=== PATIENT | male | born 1955 | race Caucasian/White ===

== ENCOUNTER 2018-08-24 10:10 | Observation (INO) | payer OTHER ==
[~2018-08-24] VITALS: Ht 177.8 cm; Wt 90.7 kg
[~2018-08-24 10:10] MED LIST: ASPI81CH PO; HYDR1TAB94 PO; LISI20 PO; MELO7.5 PO; NITR.4SL SL; SOTO80 PO; TRAZ150T57 PO; ZESTORETIC 20-121 EA PO
--- NOTE | 2018-08-25 07:15 | NUR ---
Ambulatory in Day Surgery History, Chart, Medications and Allergies reviewed before start of procedure.Patient confirms NPO status and agrees with scheduled surgery. Lungs clear T/O to Auscultation. Patient reports completing Chlorhexadine shower X2 prior to admission to hospital.Surgical site prepped with 2% Chlorhexidine cloth wipe.
--- NOTE | 2018-08-25 11:23 | NUR ---
PT HERE FROM PACU. PT RLE WITH BRISK CAP REFILL. SPLINT IN PLACE TO RLE/ANKLE, ELEVATED ON MULT PILLOWS. PT A/O. REPORTS SLIGHT NAUSEA BUT DENIES WANTING MEDICATION FOR IT. PT WIGGLES TOES. PT DENIES ANY SUICIADAL IDEATION. DENIES HX OF MRSA.
[2018-08-26 06:04] LABS: BASOPHILS ABSOLUTE AUTO 0.03 K/mm3 (0.00-0.23); BASOPHILS PERCENT AUTO 0 % (0-2); EOSINOPHILS ABSOLUTE AUTO 0.05 K/mm3 (0.00-0.68); EOSINOPHILS PERCENT AUTO 1 % (0-6); Hematocrit 34.3 % (37.0-53.0); Hemoglobin 11.3 g/dL (13.5-17.5); IMMATURE GRAN ABSOLUTE AUTO 0.04 K/mm3 (0.00-0.10); IMMATURE GRAN PERCENT AUTO 0 % (0-1); LYMPHOCYTES ABSOLUTE AUTO 1.69 K/mm3 (0.84-5.20); LYMPHOCYTES PERCENT AUTO 17 % (21-46); MONOCYTES ABSOLUTE AUTO 0.74 K/mm3 (0.16-1.47); MONOCYTES PERCENT AUTO 8 % (4-13); Mean Corpuscular HGB 33.1 pg (26.0-34.0); Mean Corpuscular HGB Conc 32.9 g/dL (31.5-36.5); Mean Platelet Volume 9.1 fL (9.1-12.4); NEUTROPHILS ABSOLUTE AUTO 7.29 K/mm3 (1.96-9.15); NEUTROPHILS PERCENT AUTO 74 % (41-73); Platelet Count 177 K/mm3 (150-400); RDW Coefficient Variation 13.9 % (11.7-14.2); RDW Standard Deviation 51.5 fL (35.1-46.3); Red Blood Cell Count 3.41 M/mm3 (4.30-5.90); White Blood Cell Count 9.84 K/mm3 (4.00-11.30)
[2018-08-26 06:12] LABS: Mean Corpuscular Volume 101 fL (80-100)
[2018-08-26 06:29] LABS: Alanine Aminotransfer (ALT/SGP 22 U/L (12-78); Albumin, Blood 3.1 g/dL (3.4-5.0); Alk Phos 69 U/L (50-136); Anion Gap 6 mmol/L (6-16); Aspartate Aminotrans (AST/SGOT 12 U/L (12-37); Bilirubin, Total 0.8 mg/dL (0.1-1.0); Blood Urea Nitrogen 19 mg/dL (8-24); Bun/Creatinine Ratio 21.5 (12.0-20.0); CO2, Blood 25 mmol/L (21-32); Chloride, Blood 109 mmol/L (98-108); Creatinine, Blood 0.88 mg/dL (0.60-1.20); Globulin, Blood 3.1 g/dL (2.2-4.0); Glomerular Filtration Rate >60 (60-); Glucose, Blood 95 mg/dL (70-99); Potassium, Blood 4.1 mmol/L (3.5-5.5); Sodium, Blood 140 mmol/L (136-145); Total Protein, Blood 6.2 g/dL (6.4-8.2)
--- NOTE | 2018-08-26 08:07 | NUR ---
SHIFT SUMMARY PT A&O X4 T/O SHIFT. POD#1 R TOTAL ANKLE REPLACEMENT. DRESSING/SPLINT CDI. PT DENIES N/T, REPORTS SENSATION, MOVES TOES, EXT PWD. PAIN MANGED PER EMAR. NWB RLE, PT UP WITH GAITBELT, FWW AND SBA. SCD AND DERIC TO LLE. ICE TO RLE AND RLE ELEVATED PT TOLERATED. TELEMETRY IN PLACE, SR WITH PVC'S PER QUARRY BOSS. PT DENIES CP, NAUSEA AND SOB; ON RA. CIWA 0 T/O SHIFT. CALL LIGHT IN REACH; PT DEMONSTRATES USE. REPORT GIVEN TO DAY SHIFT RN.
[2018-08-26] MEDS ORDERED: ACET325 PO (12:25)
[2018-08-26] MEDS ORDERED: Percocet 5-3251 EACH PO (12:26)
[2018-08-26] MEDS ORDERED: SENN187 PO (12:27)
[2018-08-26] MEDS ORDERED: GAVILAX17 GM PO (12:27)
--- NOTE | 2018-08-26 14:21 | NUR ---
DISCHARGESUMMARY PT A&OX4, VSS, LEFT FLOOR VIA WC WITH RN TO GO HOME WITH FAMILY, WITH ALL PERSONAL POSSESSIONS INCLUDING DISCHARGE PACKET AND 1 PERC SCRIPT. DISCHARGE INSTRUCTIONS PROVIDED. PT REP UNDERSTANDING THOSE INSTRUCTIONS INCLUDING SHIVA, JALEESA IN 2 WKS WITH SURGEON. IV DC'D.
--- NOTE | 2018-08-26 15:31 | NUR ---
08/26/18 1531 Samanta Avery VERIFICATIONS: EDIT CHART.
== END 2018-08-26 12:53 | disposition home or self-care (01) ==
LOC: SURS 08-25 05:39 → PRE IP 08-25 05:39 → SURS 08-25 05:39 → PRE IP 08-25 07:30 → SURS 08-25 11:15
PROVIDERS: ADMIT Podiatrist Foot & Ankle Surgery
PROC: 0SRF0JZ Replacement of Right Ankle Joint with Synthetic Substitute, Open Approach (ICD-10-PCS; principal; 2018-08-25 07:30)
DX: M19.071 Primary osteoarthritis, right ankle and foot (principal); M21.961 Unspecified acquired deformity of right lower leg; I10 Essential (primary) hypertension; Z87.891 Personal history of nicotine dependence; Z79.899 Other long term (current) drug therapy; Z79.82 Long term (current) use of aspirin
CPT/HCPCS: 36415; 73610; 80053; 85025; 85027; 86850; 86900; 86901; 97116; 97162; 97165; 97530; 97535; C1776; G0378; J0171; J0690; J0735; J1100; J1650; J1885; J2250; J2405; J2795; J3010; J7030; J7120

== ENCOUNTER 2019-07-07 19:03 | Inpatient (IN) | payer OTHER ==
[~2019-07-07] VITALS: Ht 182.9 cm; Wt 96.8 kg
[~2019-07-07 19:03] MED LIST changes: +ACET325 PO; -ASPI81CH PO; +GAVILAX17 GM PO; -LISI20 PO; -MELO7.5 PO; +Percocet 5-3251 EACH PO; +SENN187 PO; -SOTO80 PO
[2019-07-07 19:20] LABS: Chloride (POC) 105 mmol/L (98-108); Creatinine (POC) 1.1 mg/dL (0.8-1.3); Glucose (ISTAT POC) 132 mg/dL (70-99); Hemoglobin (POC) 14.3 g/dL (13.5-17.5); Potassium (POC) 4.3 mmol/L (3.5-5.5); Sodium (POC) 138 mmol/L (135-148); Total CO2 (POC) 24 mmol/L (21-32)
[2019-07-07 19:39] LABS: BASOPHILS ABSOLUTE AUTO 0.06 K/mm3 (0.00-0.23); BASOPHILS PERCENT AUTO 1 % (0-2); EOSINOPHILS ABSOLUTE AUTO 0.24 K/mm3 (0.00-0.68); EOSINOPHILS PERCENT AUTO 3 % (0-6); Hematocrit 42.7 % (37.0-53.0); Hemoglobin 13.9 g/dL (13.5-17.5); IMMATURE GRAN ABSOLUTE AUTO 0.03 K/mm3 (0.00-0.10); IMMATURE GRAN PERCENT AUTO 0 % (0-1); LYMPHOCYTES ABSOLUTE AUTO 1.75 K/mm3 (0.84-5.20); LYMPHOCYTES PERCENT AUTO 22 % (21-46); MONOCYTES ABSOLUTE AUTO 0.76 K/mm3 (0.16-1.47); MONOCYTES PERCENT AUTO 9 % (4-13); Mean Corpuscular HGB 32.5 pg (26.0-34.0); Mean Corpuscular HGB Conc 32.6 g/dL (31.5-36.5); Mean Corpuscular Volume 100 fL (80-100); Mean Platelet Volume 9.2 fL (9.1-12.4); NEUTROPHILS ABSOLUTE AUTO 5.22 K/mm3 (1.96-9.15); NEUTROPHILS PERCENT AUTO 65 % (41-73); Platelet Count 235 K/mm3 (150-400); RDW Coefficient Variation 13.2 % (11.7-14.2); RDW Standard Deviation 47.9 fL (35.1-46.3); Red Blood Cell Count 4.28 M/mm3 (4.30-5.90); White Blood Cell Count 8.06 K/mm3 (4.00-11.30)
[2019-07-07] MEDS ORDERED: ELIQUIS5 M2 PO (20:09)
[2019-07-07] MEDS ORDERED: Aspir 8181 MG PO (20:10)
[2019-07-07 20:19] LABS: Alanine Aminotransfer (ALT/SGP 36 U/L (12-78); Albumin, Blood 3.4 g/dL (3.4-5.0); Alk Phos 96 U/L (50-136); Anion Gap 5 mmol/L (6-16); Aspartate Aminotrans (AST/SGOT 31 U/L (12-37); Bilirubin, Total 0.3 mg/dL (0.1-1.0); Blood Urea Nitrogen 20 mg/dL (8-24); Bun/Creatinine Ratio 20.5 (12.0-20.0); CO2, Blood 25 mmol/L (21-32); Calcium, Blood 7.9 mg/dL (8.5-10.1); Chloride, Blood 110 mmol/L (98-108); Creatinine, Blood 0.98 mg/dL (0.60-1.20); Globulin, Blood 3.5 g/dL (2.2-4.0); Glomerular Filtration Rate >60 (60-); Glucose, Blood 131 mg/dL (70-99); Magnesium, Blood 1.9 mg/dL (1.6-2.4); Potassium, Blood 4.4 mmol/L (3.5-5.5); Sodium, Blood 140 mmol/L (136-145); Total Protein, Blood 6.9 g/dL (6.4-8.2)
[2019-07-07] MEDS ORDERED: Mobic15 MG PO (20:31)
[2019-07-07] MEDS ORDERED: LISI20 PO (20:31)
[2019-07-07] MEDS ORDERED: SOTO80 PO (20:31)
[2019-07-07] MEDS ORDERED: HYDR1TAB94 PO (20:32)
--- NOTE | 2019-07-08 06:42 | NUR ---
ADMIT NOTE/SHIFT SUMMARY PATIENT PLEASENT AND COOPERATIVE UPON ADMIT AND THROUGHOUT THE NIGHT. PATIENT ADMITTED FROM THE ER EARLIER THIS SHIFT. PATIENT ABLE TO INDEPENDENTLY TRANSFER SELF FROM THE GURNEY TO THE BED. PATIENT SELTTLED IN AND ORIENTED TO THE ROOM, UNIT, AND CAALL LIGHT. AMIODERONE GTT STARTED IN ER AT APROX 2030. GTT CONTINUES TO RUN PER ORDERS. PATIENT HAS DENIED ANY CHEST PAIN THROUGHOUT THE NIGHT. DIFIB PADS IN PLACE PER ORDERS. SIGNIFICANT OTHER STAYED THE NIGHT AT THE BEDSIDE. PATIENT CURRENTLY APPEARS TO BE ASLEEP. WILL CONTINUE TO MONITOR PATIENT AND REPORT TO ONCOMING RN.
--- NOTE | 2019-07-08 07:48 | NUR ---
PT LAYING IN BED AWAKE A/OX3, PLEASANT AND COOPERATIVE WITH CARE, FOLLOWS COMMANDS WELL, DENIES ANY COMPLAINTS OF C.P. SOB, OR DIZZINESS, REPORTS THAT IS ALL RESOLVED, LUNGS ARE CLEAR T/O, RESP EVEN AND UNLABORED, NO COUGH NOTED, HRR, TELE IN PLACE RUNNING SR WITH OCC PACED BEATS, NO EDEMA NOTED, PIV X2, SITES ARE CLEAR AND PATENT, AMIODORONE INFUSING, BTX4, ABD FLAT SOFT NONTENDER, VOIDS WITHOUT DIFF, SKIN C/W/D, MAEW, MATTI, CALL LIGHT IN REACH.
--- NOTE | 2019-07-08 13:00 | NUR ---
PT DOING WELL, NO COMPLAINTS, STATES HE'S READY TO GO HOME. STARTED HIM ON ORAL AMIO. MAY DISCHARGE AROUND 1700. V.S. ARE STABLE, CALL LIGHT IN REACH.
[2019-07-08 17:02] LABS: Albumin, Blood 3.4 g/dL (3.4-5.0); Bilirubin, Direct 0.1 mg/dL (0.0-0.3); Bilirubin, Indirect 0.3 mg/dL (0.1-0.7); Bilirubin, Total 0.4 mg/dL (0.1-1.0); Globulin, Blood 3.5 g/dL (2.2-4.0); Total Protein, Blood 6.9 g/dL (6.4-8.2)
[2019-07-08 17:10] LABS: Thyroid Stimulating Hormone 1.25 uIU/mL (0.360-4.800)
--- NOTE | 2019-07-08 18:30 | NUR ---
pt up ad marsha in room, no complaints, was hoping to go home today, has felt good through out the day. call light in reach.
--- NOTE | 2019-07-08 22:38 | NUR ---
CARE ASSUMPTION PT A&O X4. VSS. MONITOR SHOWS NSR, HR 60's. AMIO GTT NO LONGER INFUSING. PT INDEPENDENT IN ROOM ASKING ABOUT DISCHARGE HOME. NO ORDERS FOR DISCHARGE AT THIS TIME. WILL CONTINUE TO MONITOR AND PROVIDE CARE.
--- NOTE | 2019-07-09 05:38 | NUR ---
SHIFT SUMMARY PT CONTINUES TO BE A&O X4. INDEPENDENT IN ROOM. VSS. MONITOR SHOWING NSR, HR 60's. NO EVENTS/CHANGES THIS SHIFT. PT REPORTS DEFIB PADS REMOVED DURING DAY THURSDAY. PT AWAITING WORD ON [employer] FINANCIAL ASSISTANCE & ANTICIPATING DISCHARGE HOME. WILL CONTINUE TO MONITOR AND PROVIDE CARE UNTIL REPORT OFF TO DAY SHIFT RN.
--- NOTE | 2019-07-09 12:30 | NUR ---
ASSUMED CARE OF PATIENT AT 1200. SITTING AT SIDE OF BED IN NAD. DENIES CHEST PAIN, SOB. LUNGS CTAB, HRR. IS ANXIOUS FOR CUSTOMER SUPPORT PROFESSIONAL TO SEE HIM HE WOULD LIKE TO BE DISCHARGED. AMBULATES INDEPENDENTLY.
--- NOTE | 2019-07-09 18:34 | NUR ---
SHIFT SUMMARY: NO EVENTS DURING THE DAY. NO C/O CHEST DISCOMFORT OR SOB. AMBULATING INDEPENDENTLY. GOOD APPETITE. IS AWAITING VISIT FROM PROGRAM DIR.
--- NOTE | 2019-07-09 19:21 | NUR ---
CARDIOLOGY: CALLED DR MIRANDA ON CELL PHONE AFTER BEING NOTIFIED PT WAS NOT SIGNED OUT TO DR CURTIS. DR MIRANDA STATES PT WAS TO BE DISCHARGED THIS MORNING AFTER RECIVING CARDIAC MEDICATIONS. TALKED WITH NURSING PERSONAL CARE ASSISTANT. REPORTED OF TO NOC DATA PROCESSING MECHANIC TO FOLLOW UP WITH HOSPITALIST TO GET DISCHARGE.
--- NOTE | 2019-07-09 20:30 | NUR ---
CARE ASSUMPTION NOC JD EDWARDS W/ CALL TO MD ESQUIVEL @ APPROX 1999 W/ REQUEST FOR PT DISCHARGE. NOC HOSPITALIST UNABLE TO DISCHARGE PT D/T NO DISCHARGE CRITERIA OR INSTRUCTIONS. PT CALM AND COOPERATIVE, WAITING PATIENTLY IN ROOM ANTICIPATING DISCHARGE HOME HE WAS INFORMED HE WOULD BE DISCHARGING HOME TODAY. PT A&O X4. VSS. ASSESSMENT BENIGN. MONITOR SHOWS SR, HR 60's. PT AGREEABLE TO WAIT FOR DISCHARGE HOME BY DOCTOR IN AM. WILL CONTINUE TO MONITOR AND PROVIDE CARE.
--- NOTE | 2019-07-10 06:06 | NUR ---
SHIFT SUMMARY PT A&O X4. VSS. MONITOR SHOWS NSR, HR 60's. NO EVENTS/CHANGES OVERNIGHT. PT AWAITING DISCHARGE. WILL CONTINUE TO MONITOR AND PROVIDE CARE UNTIL REPORT OFF TO DAY SHIFT RN.
--- NOTE | 2019-07-10 10:00 | NUR ---
CARE ASSUMED/PROVIDER VISIT/DISCHARGE REPORT RECEIVED, CARE ASSUMED AT 0700 FROM GRETCHEN ARTIS. ON ROUNDING, PT DRESSED, REPORTS BEING READY TO GO HOME. INFORMED PATIENT ON PLAN OF CARE AND PT AGREEABLE. VITALS STABLE. PT DENIES CHEST PAIN OR DIZZINESS. PT OFF ON WALK INDEPENDENTLY IN HOSPITAL. DR. BAJWA BY FOR ASSESSMENT. PLAN MADE FOR DISCHARGE. DISCHARGE PAPERWORK UPDATED. ARAMIS HUSAIN RN UPDATED AND AGREEABLE TO REVIEW PAPERWORK AND PROVIDER PAPERWORK AND EDUCATION TO PATIENT.
[2019-07-10] MEDS ORDERED: Pacerone400 MG PO (10:25)
--- NOTE | 2019-07-10 11:02 | NUR ---
discharge home PT discharged home. he refused a w/c out. medication orders faxed to mayda smith at [facility]. Talked with pt about going on line and requesting medications through the operations clerk for eliqu[employer]. We did not have a coupon for Eliquis. iv removed with cannula intact. Continue pot.
== END 2019-07-10 10:59 | disposition home or self-care (01) | DRG 309 ==
LOC: ER 19:03 → PCU 19:04
PROVIDERS: Emergency Medicine; Internal Medicine Cardiovascular Disease; ADMIT Internal Medicine
PROC: 5A2204Z Restoration of Cardiac Rhythm, Single (ICD-10-PCS; principal; 2019-07-07)
DX: I48.92 Unspecified atrial flutter (principal); T82.118A Breakdown (mechanical) of other cardiac electronic device, initial encounter; I47.2 Ventricular tachycardia; I25.10 Atherosclerotic heart disease of native coronary artery without angina pectoris; Z95.0 Presence of cardiac pacemaker; I25.2 Old myocardial infarction; I10 Essential (primary) hypertension; Z96.661 Presence of right artificial ankle joint; Z87.891 Personal history of nicotine dependence; Z79.82 Long term (current) use of aspirin; Z91.120 Patient's intentional underdosing of medication regimen due to financial hardship; F10.10 Alcohol abuse, uncomplicated; T45.516A Underdosing of anticoagulants, initial encounter; Y92.9 Unspecified place or not applicable
CPT/HCPCS: 36415; 80047; 80053; 80076; 83735; 84443; 84484; 85014; 85025; 92960; 93005; 93010; 96365-59; 96366-59; 96375-59; 96376; 99285-25; G0378; J0282; J2704; J3010; J7030; J7060

== ENCOUNTER → 2020-08-29 | Outpatient (CLI) | payer MEDICARE, OTHER ==
[~2020-08-29] MED LIST changes: +ATOR20 PO; +Aspir 8181 MG PO; +CLIN150 PO; +Cleocin HCl300 MG PO; +ELIQUIS5 M2 PO; +LISI20 PO; +Mobic15 MG PO; +Pacerone400 MG PO; +SOTO80 PO; +WARF3 PO
== END | disposition home or self-care (01) ==
LOC: LAB SHORT 13:06 → PLD 13:06
DX: L03.114 Cellulitis of left upper limb (principal); L03.115 Cellulitis of right lower limb
CPT/HCPCS: 87070; 87075; 87077; 87147; 87186; 87205

== ENCOUNTER 2020-09-24 10:49 | Emergency (ER) | payer MEDICARE, OTHER ==
[~2020-09-24] VITALS: Ht 180.3 cm; Wt 97.1 kg
[~2020-09-24 10:49] MED LIST changes: -ATOR20 PO; -CLIN150 PO; -Cleocin HCl300 MG PO; -WARF3 PO
[2020-09-24] MEDS ORDERED: WARF3 PO (11:09)
[2020-09-24 11:43] LABS: BASOPHILS ABSOLUTE AUTO 0.05 K/mm3 (0.00-0.23); BASOPHILS PERCENT AUTO 1 % (0-2); EOSINOPHILS ABSOLUTE AUTO 0.12 K/mm3 (0.00-0.68); EOSINOPHILS PERCENT AUTO 2 % (0-6); Hematocrit 33.6 % (37.0-53.0); Hemoglobin 11.1 g/dL (13.5-17.5); IMMATURE GRAN ABSOLUTE AUTO 0.05 K/mm3 (0.00-0.10); IMMATURE GRAN PERCENT AUTO 1 % (0-1); LYMPHOCYTES ABSOLUTE AUTO 0.77 K/mm3 (0.84-5.20); LYMPHOCYTES PERCENT AUTO 13 % (21-46); MONOCYTES PERCENT AUTO 10 % (4-13); Mean Corpuscular HGB 31.2 pg (26.0-34.0); Mean Corpuscular Volume 94 fL (80-100); Mean Platelet Volume 8.6 fL (9.1-12.4); NEUTROPHILS ABSOLUTE AUTO 4.55 K/mm3 (1.96-9.15); NEUTROPHILS PERCENT AUTO 74 % (41-73); Platelet Count 242 K/mm3 (150-400); RDW Coefficient Variation 13.5 % (11.7-14.2); RDW Standard Deviation 46.9 fL (35.1-46.3); Red Blood Cell Count 3.56 M/mm3 (4.30-5.90); White Blood Cell Count 6.14 K/mm3 (4.00-11.30)
[2020-09-24 11:57] LABS: Alanine Aminotransfer (ALT/SGP 26 U/L (12-78); Albumin, Blood 2.9 g/dL (3.4-5.0); Albumin/Globulin Ratio 0.6 (0.8-1.8); Alk Phos 89 U/L (50-136); Anion Gap 8 mmol/L (6-16); Aspartate Aminotrans (AST/SGOT 19 U/L (12-37); Bilirubin, Total 0.5 mg/dL (0.1-1.0); Blood Urea Nitrogen 21 mg/dL (8-24); Bun/Creatinine Ratio 17.8 (12.0-20.0); CO2, Blood 24 mmol/L (21-32); Calcium, Blood 8.3 mg/dL (8.5-10.1); Chloride, Blood 101 mmol/L (98-108); Creatinine, Blood 1.18 mg/dL (0.60-1.20); Globulin, Blood 4.8 g/dL (2.2-4.0); Glomerular Filtration Rate >60 (60-); Glucose, Blood 93 mg/dL (70-99); Potassium, Blood 4.6 mmol/L (3.5-5.5); Sodium, Blood 133 mmol/L (136-145); Total Protein, Blood 7.7 g/dL (6.4-8.2)
[2020-09-24] MEDS ORDERED: CLIN150 PO (12:34)
== END 2020-09-24 15:10 | disposition home or self-care (01) ==
LOC: ER 10:49
PROVIDERS: Physician Assistant
DX: S71.111A Laceration without foreign body, right thigh, initial encounter (principal); L08.9 Local infection of the skin and subcutaneous tissue, unspecified; I10 Essential (primary) hypertension; M79.604 Pain in right leg; Z79.01 Long term (current) use of anticoagulants; Z79.899 Other long term (current) drug therapy
CPT/HCPCS: 36415; 76882; 80053; 85025; 87070; 87147; 87205; 96365; 96366; 99284-25; J3370; J7050

== ENCOUNTER → 2020-09-24 | Outpatient (CLI) | payer MEDICARE, OTHER | END | disposition home or self-care (01) | LOC: LAB SHORT 18:25 → PLD 18:25 | DX: L03.116 Cellulitis of left lower limb (principal) | CPT/HCPCS: 87070; 87147; 87205 ==

== ENCOUNTER 2020-10-05 12:03 | Emergency (ER) | payer MEDICARE, OTHER ==
[~2020-10-05] VITALS: Ht 180.3 cm; Wt 93.9 kg
[~2020-10-05 12:03] MED LIST changes: +CLIN150 PO; +WARF3 PO
[2020-10-05] MEDS ORDERED: ATOR20 PO (12:27)
[2020-10-05 12:56] LABS: BASOPHILS ABSOLUTE AUTO 0.05 K/mm3 (0.00-0.23); BASOPHILS PERCENT AUTO 1 % (0-2); EOSINOPHILS ABSOLUTE AUTO 0.08 K/mm3 (0.00-0.68); EOSINOPHILS PERCENT AUTO 1 % (0-6); Hematocrit 35.5 % (37.0-53.0); Hemoglobin 11.7 g/dL (13.5-17.5); IMMATURE GRAN ABSOLUTE AUTO 0.03 K/mm3 (0.00-0.10); IMMATURE GRAN PERCENT AUTO 0 % (0-1); LYMPHOCYTES PERCENT AUTO 16 % (21-46); MONOCYTES ABSOLUTE AUTO 0.74 K/mm3 (0.16-1.47); MONOCYTES PERCENT AUTO 11 % (4-13); Mean Corpuscular HGB 30.9 pg (26.0-34.0); Mean Corpuscular Volume 94 fL (80-100); Mean Platelet Volume 8.1 fL (9.1-12.4); NEUTROPHILS ABSOLUTE AUTO 4.89 K/mm3 (1.96-9.15); NEUTROPHILS PERCENT AUTO 71 % (41-73); Platelet Count 321 K/mm3 (150-400); RDW Coefficient Variation 14.2 % (11.7-14.2); RDW Standard Deviation 49.1 fL (35.1-46.3); Red Blood Cell Count 3.79 M/mm3 (4.30-5.90); White Blood Cell Count 6.89 K/mm3 (4.00-11.30)
[2020-10-05 13:11] LABS: Anion Gap 8 mmol/L (6-16); Blood Urea Nitrogen 18 mg/dL (8-24); Bun/Creatinine Ratio 17.1 (12.0-20.0); CO2, Blood 23 mmol/L (21-32); Calcium, Blood 8.7 mg/dL (8.5-10.1); Chloride, Blood 104 mmol/L (98-108); Creatinine, Blood 1.05 mg/dL (0.60-1.20); Glomerular Filtration Rate >60 (60-); Glucose, Blood 88 mg/dL (70-99); Potassium, Blood 4.1 mmol/L (3.5-5.5); Sodium, Blood 135 mmol/L (136-145)
[2020-10-05] MEDS ORDERED: Cleocin HCl300 MG PO (14:33)
== END 2020-10-05 14:55 | disposition home or self-care (01) ==
LOC: ER 12:03
PROVIDERS: Emergency Medicine
DX: L03.115 Cellulitis of right lower limb (principal); Z79.01 Long term (current) use of anticoagulants; Z79.82 Long term (current) use of aspirin
CPT/HCPCS: 36415; 73701; 80048; 85025; 86140; 99284-25; A9270; Q9967

== ENCOUNTER 2020-10-30 01:06 | Day surgery (SDC) | payer MEDICARE, OTHER ==
[~2020-10-30 01:06] MED LIST changes: +ATOR20 PO; +Cleocin HCl300 MG PO
== END 2020-10-30 23:16 | disposition home or self-care (01) ==
LOC: WOUND 01:06
DX: L03.115 Cellulitis of right lower limb (principal); S71.011A Laceration without foreign body, right hip, initial encounter; S81.001A Unspecified open wound, right knee, initial encounter; Z87.891 Personal history of nicotine dependence
CPT/HCPCS: G0463

== ENCOUNTER 2020-11-08 00:25 | Day surgery (SDC) | payer MEDICARE, OTHER | END 2020-11-08 23:22 | disposition home or self-care (01) | LOC: WOUND 00:25 | DX: S81.001D Unspecified open wound, right knee, subsequent encounter (principal); X58.XXXD Exposure to other specified factors, subsequent encounter | CPT/HCPCS: A9270; G0463 ==

== ENCOUNTER → 2021-05-23 | Outpatient (CLI) | payer OTHER ==
[2021-05-23 15:41] LABS: BASOPHILS ABSOLUTE AUTO 0.05 K/mm3 (0.00-0.23); BASOPHILS PERCENT AUTO 1 % (0-2); EOSINOPHILS PERCENT AUTO 2 % (0-6); Hematocrit 39.3 % (37.0-53.0); Hemoglobin 13.2 g/dL (13.5-17.5); IMMATURE GRAN ABSOLUTE AUTO 0.03 K/mm3 (0.00-0.10); IMMATURE GRAN PERCENT AUTO 1 % (0-1); LYMPHOCYTES ABSOLUTE AUTO 0.78 K/mm3 (0.84-5.20); LYMPHOCYTES PERCENT AUTO 13 % (21-46); MONOCYTES PERCENT AUTO 13 % (4-13); Mean Corpuscular HGB Conc 33.6 g/dL (31.5-36.5); Mean Corpuscular Volume 95 fL (80-100); NEUTROPHILS ABSOLUTE AUTO 4.29 K/mm3 (1.96-9.15); NEUTROPHILS PERCENT AUTO 71 % (41-73); Platelet Count 227 K/mm3 (150-400); RDW Coefficient Variation 14.3 % (11.7-14.2); RDW Standard Deviation 49.6 fL (35.1-46.3); Red Blood Cell Count 4.13 M/mm3 (4.30-5.90); White Blood Cell Count 6.05 K/mm3 (4.00-11.30)
[2021-05-23 15:58] LABS: Cholesterol 134 mg/dL (50-200); HDL Cholesterol 68 mg/dL (>39); LDL/HDL RATIO 0.8; Low Density Lipoprotein Chol 56 mg/dL (0-110); Triglycerides 48 mg/dL (30-160); Very Low Density Lipoprot Chol 9 mg/dL (6-32)
[2021-05-23 16:55] LABS: Alanine Aminotransfer (ALT/SGP 46 U/L (12-78); Albumin, Blood 3.6 g/dL (3.4-5.0); Albumin/Globulin Ratio 0.8 (0.8-1.8); Alk Phos 128 U/L (50-136); Anion Gap 7 mmol/L (6-16); Aspartate Aminotrans (AST/SGOT 41 U/L (12-37); Bilirubin, Total 0.6 mg/dL (0.1-1.0); Blood Urea Nitrogen 19 mg/dL (8-24); Bun/Creatinine Ratio 16.7 (12.0-20.0); CO2, Blood 25 mmol/L (21-32); Chloride, Blood 99 mmol/L (98-108); Creatinine, Blood 1.14 mg/dL (0.60-1.20); Globulin, Blood 4.4 g/dL (2.2-4.0); Glomerular Filtration Rate >60 (60-); Glucose, Blood 78 mg/dL (70-99); Potassium, Blood 4.7 mmol/L (3.5-5.5); Sodium, Blood 131 mmol/L (136-145)
== END | disposition home or self-care (01) ==
LOC: LAB SHORT 13:08 → LAB 13:08
PROVIDERS: Nurse Practitioner
DX: Z12.5 Encounter for screening for malignant neoplasm of prostate (principal); E78.5 Hyperlipidemia, unspecified; R53.83 Other fatigue
CPT/HCPCS: 80053; 80061; 84443; 85025; G0103

== ENCOUNTER → 2022-03-25 | Outpatient (CLI) | payer OTHER ==
[2022-03-25 16:18] LABS: BASOPHILS ABSOLUTE AUTO 0.05 K/mm3 (0.00-0.23); BASOPHILS PERCENT AUTO 1 % (0-2); EOSINOPHILS PERCENT AUTO 2 % (0-6); Hematocrit 41.2 % (37.0-53.0); Hemoglobin 13.9 g/dL (13.5-17.5); IMMATURE GRAN ABSOLUTE AUTO 0.02 K/mm3 (0.00-0.10); IMMATURE GRAN PERCENT AUTO 0 % (0-1); LYMPHOCYTES ABSOLUTE AUTO 0.82 K/mm3 (0.84-5.20); LYMPHOCYTES PERCENT AUTO 14 % (21-46); MONOCYTES ABSOLUTE AUTO 0.92 K/mm3 (0.16-1.47); MONOCYTES PERCENT AUTO 16 % (4-13); Mean Corpuscular HGB 31.7 pg (26.0-34.0); Mean Corpuscular HGB Conc 33.7 g/dL (31.5-36.5); Mean Corpuscular Volume 94 fL (80-100); Mean Platelet Volume 8.6 fL (9.1-12.4); NEUTROPHILS ABSOLUTE AUTO 3.91 K/mm3 (1.96-9.15); NEUTROPHILS PERCENT AUTO 67 % (41-73); Platelet Count 260 K/mm3 (150-400); RDW Coefficient Variation 14.1 % (11.7-14.2); RDW Standard Deviation 48.9 fL (35.1-46.3); Red Blood Cell Count 4.39 M/mm3 (4.30-5.90); White Blood Cell Count 5.82 K/mm3 (4.00-11.30)
[2022-03-25 16:34] LABS: Alanine Aminotransfer (ALT/SGP 39 U/L (12-78); Albumin, Blood 3.9 g/dL (3.4-5.0); Alk Phos 131 U/L (50-136); Anion Gap 7 mmol/L (6-16); Aspartate Aminotrans (AST/SGOT 27 U/L (12-37); Bilirubin, Total 0.7 mg/dL (0.1-1.0); Blood Urea Nitrogen 24 mg/dL (8-24); Bun/Creatinine Ratio 20.5 (12.0-20.0); CHOL/HDL RATIO 2.6; CO2, Blood 25 mmol/L (21-32); Calcium, Blood 9.3 mg/dL (8.5-10.1); Chloride, Blood 100 mmol/L (98-108); Cholesterol 147 mg/dL (50-200); Creatinine, Blood 1.17 mg/dL (0.60-1.20); Globulin, Blood 3.9 g/dL (2.2-4.0); Glomerular Filtration Rate 69 (60-); Glucose, Blood 90 mg/dL (70-99); HDL Cholesterol 56 mg/dL (>39); LDL/HDL RATIO 1.4; Low Density Lipoprotein Chol 78 mg/dL (0-110); Potassium, Blood 4.6 mmol/L (3.5-5.5); Sodium, Blood 132 mmol/L (136-145); Total Protein, Blood 7.8 g/dL (6.4-8.2); Triglycerides 66 mg/dL (30-160); Very Low Density Lipoprot Chol 13 mg/dL (6-32)
== END | disposition home or self-care (01) ==
LOC: LAB 16:03 → LAB SHORT 16:03
PROVIDERS: Nurse Practitioner
DX: E78.5 Hyperlipidemia, unspecified (principal); R06.09 Other forms of dyspnea
CPT/HCPCS: 80053; 80061; 83880; 85025

== ENCOUNTER 2022-08-22 06:07 | Day surgery (SDC) | payer OTHER ==
[~2022-08-22] VITALS: Ht 180.3 cm; Wt 94.3 kg
[2022-08-22] MEDS ORDERED: ELIQUIS5 M2 PO (06:59)
[2022-08-22] MEDS ORDERED: FURO20 PO (07:21)
--- NOTE | 2022-08-22 08:24 | NUR ---
08/22/22 0824 Deepali De Leon FIRST DOSE OF TXA STARTED BY DR SILVA AT 0805.
--- NOTE | 2022-08-22 10:37 | NUR ---
08/22/[address] [place] [address] 0743: BLOCK TO R POPLITEAL COMPLETED BY DR ISLVA. TIMEOUT COMPLETED.
--- NOTE | 2022-08-22 11:45 | NUR ---
08/22/22 1145 MITCH LENTZ PT ABLE TO FEEL FROM JUST BELOW UMBILICUS UP. PT ALERT AND ORIENTED. FRIENDLY AND COOPERATIVE.
--- NOTE | 2022-08-22 12:07 | NUR ---
08/22/22 1207 MITCH LENTZ PT ABLE TO FEEL FROM GROIN UP.
== END 2022-08-22 16:15 | disposition home or self-care (01) ==
LOC: ORSCSDS 06:07
PROVIDERS: Podiatrist Foot & Ankle Surgery
PROC: 0SGF04Z Fusion of Right Ankle Joint with Internal Fixation Device, Open Approach (ICD-10-PCS; principal; 2022-08-22 07:30)
PROC: 0QPJ04Z Removal of Internal Fixation Device from Right Fibula, Open Approach (ICD-10-PCS; principal; 2022-08-22 07:30)
DX: M87.071 Idiopathic aseptic necrosis of right ankle (principal); Z96.661 Presence of right artificial ankle joint; M89.70 Major osseous defect, unspecified site; M25.671 Stiffness of right ankle, not elsewhere classified; M65.871 Other synovitis and tenosynovitis, right ankle and foot; I10 Essential (primary) hypertension; I25.10 Atherosclerotic heart disease of native coronary artery without angina pectoris; Z87.891 Personal history of nicotine dependence; Z79.899 Other long term (current) drug therapy; Z79.82 Long term (current) use of aspirin; Z79.85 Long-term (current) use of injectable non-insulin antidiabetic drugs
CPT/HCPCS: 73610; C1713; C1734; C1769; C1776; J0171; J0690; J0735; J1100; J1885; J2250; J2370; J2405; J2704; J2795; J3010; J7120

== ENCOUNTER 2023-11-19 14:46 | Inpatient (IN) | payer OTHER ==
[~2023-11-19] VITALS: Ht 180.3 cm; Wt 198.7 kg
[~2023-11-19 14:46] MED LIST changes: +CEPH500 PO; +FURO20 PO
[2023-11-19 15:33] LABS: BASOPHILS ABSOLUTE AUTO 0.07 K/mm3 (0.00-0.23); BASOPHILS PERCENT AUTO 1 % (0-2); EOSINOPHILS ABSOLUTE AUTO 0.15 K/mm3 (0.00-0.68); EOSINOPHILS PERCENT AUTO 2 % (0-6); Hematocrit 41.6 % (37.0-53.0); Hemoglobin 14.4 g/dL (13.5-17.5); IMMATURE GRAN ABSOLUTE AUTO 0.04 K/mm3 (0.00-0.10); IMMATURE GRAN PERCENT AUTO 1 % (0-1); LYMPHOCYTES ABSOLUTE AUTO 1.14 K/mm3 (0.84-5.20); LYMPHOCYTES PERCENT AUTO 13 % (21-46); MONOCYTES ABSOLUTE AUTO 0.63 K/mm3 (0.16-1.47); MONOCYTES PERCENT AUTO 7 % (4-13); Mean Corpuscular HGB 32.1 pg (26.0-34.0); Mean Corpuscular HGB Conc 34.6 g/dL (31.5-36.5); Mean Corpuscular Volume 93 fL (80-100); Mean Platelet Volume 8.3 fL (9.1-12.4); NEUTROPHILS ABSOLUTE AUTO 6.57 K/mm3 (1.96-9.15); NEUTROPHILS PERCENT AUTO 76 % (41-73); Platelet Count 246 K/mm3 (150-400); RDW Coefficient Variation 13.6 % (11.7-14.2); RDW Standard Deviation 46.2 fL (35.1-46.3); Red Blood Cell Count 4.48 M/mm3 (4.30-5.90)
[2023-11-19 15:53] LABS: Albumin, Blood 3.9 g/dL (3.4-5.0); Bilirubin, Total 1.3 mg/dL (0.1-1.0); Bun/Creatinine Ratio 18.1 (12.0-20.0); Globulin, Blood 4.1 g/dL (2.2-4.0); Potassium, Blood 3.6 mmol/L (3.5-5.5)
[2023-11-19] MEDS ORDERED: FUROSEMIDE20 MG PO (16:00)
[2023-11-19] MEDS ORDERED: LISI5 PO (16:00)
[2023-11-19] MEDS ORDERED: Amiodarone HCl200 MG PO (16:00)
[2023-11-19] MEDS ORDERED: KLOR-CON 1010 ME9 PO (16:01)
[2023-11-19] MEDS ORDERED: ATORVASTATIN CA20 MG PO (16:05)
[2023-11-19] MEDS ORDERED: OMEP20ER PO (16:06)
[2023-11-19 16:07] LABS: Magnesium, Blood 1.7 mg/dL (1.6-2.4)
[2023-11-19] MEDS ORDERED: Furosemide 20 MG Tab PO ONE (17:50)
[2023-11-19] MEDS ORDERED: Magnesium Sulf 2 GM/Water 50ML 50 ML IV STA (17:59)
[2023-11-19] MEDS ORDERED: Furosemide 10 MG/ML 4ML Vial IV ONE (18:00)
[2023-11-19] MEDS ORDERED: Metoprolol Succinate 25 MG TABCR PO SCH (18:00)
[2023-11-19] MEDS ORDERED: Potassium Chloride 20 MEQ TabCR PO ONE (18:00)
[2023-11-19] MEDS ORDERED: LORazepam 2 MG/ML 1ML Injection IV PRN (18:15)
[2023-11-19] MEDS ORDERED: ChlordiazePOXIDE 25 MG Cap PO PRN ×2 (18:15)
[2023-11-19] MEDS ORDERED: HYDROCODONE-AC1 EA19 PO (18:23)
[2023-11-19 18:52] VITALS: BP 117/79
[2023-11-19] MEDS ORDERED: Aspirin 325 MG Tab PO ONE (19:00)
--- NOTE | 2023-11-19 19:01 | NUR ---
PCU ADMIT / END OF SHIFT PT BROUGHT TO PCU-07 BY WHEELCHAIR FROM ER @ 1845. PT A&O X4. PT ABLE TO STAND & WEAKLY AMBULATE FROM TO PCU BED & TO BATHROOM. PT VSS. SPO2 > 92% ON RA. MONITOR SHOWING IRREGULAR RHYTHM W/ INTERMITTENT PACING, HR 70s-80s. PT DENYING CP/DISCOMFORT OR ANY OTH PAIN/DISCOMFORT AT THIS TIME. IV MAGNESIUM INITIATED PER ORDER. WILL REPORT OFF TO ATTENDING PHYSICIAN RN.
[2023-11-19 20:12] VITALS: BP 117/86
[2023-11-19] MEDS ORDERED: Amiodarone HCl 200 MG Tab PO SCH (21:00)
--- NOTE | 2023-11-19 22:57 | NUR ---
PT IS ALERT AND ORIENTED X 4, COOPERATIVE WITH CARE AND ABLE TO MAKE NEEDS KNOWN. HE IS ON RA AND MAINTAINING 02 SATURATION ABOVE 92%, HE DENIES SOB. HR SR 60'S-80'S. PT HAS AN AICD TO L UPPER CHEST. BP STABLE. PT DENIES CHEST PAIN/PRESSURE. PT HAS HX OF FALLS, DIZZINESS & LIGHTHEADEDNESS WHEN AMBULATING, AND HX OF BLACKING OUT. PT DENIES DIZZINESS AND LIGHTHEADEDNESS SO FAR THIS SHIFT. EDUCATED PT ON IMPORTANCE OF CALLING BEFORE MOVING AROUND THE ROOM FOR SBA CONSIDERING HIS HISTORY. PT STATED UNDERSTANDING. PT IS CONTINENT OF BLADDER AND BOWELS, USES URINAL INDEPENDENTLY AND TOLERATES WELL. PT SAID HE DRINKS 6-7 BEERS A DAY AND HIS LAST DRINK WAS THE NIGHT OF 11/18/23. CIWA SCORE OF 0. IV TO R FA PATENT/FLUSHED/SALINE LOCKED. PT RESTING IN HIS ROOM AND CALL LIGHT WITHIN REACH.
[2023-11-20 00:47] VITALS: BP 80/53
[2023-11-20 04:24] LABS: Bun/Creatinine Ratio 18.6 (12.0-20.0); Calcium, Blood 8.7 mg/dL (8.5-10.1); Creatinine, Blood 1.02 mg/dL (0.60-1.20); Potassium, Blood 3.9 mmol/L (3.5-5.5)
--- NOTE | 2023-11-20 05:12 | NUR ---
NO ACUTE CHANGES, SEE PREVIOUS NOTE.
[2023-11-20 05:17] VITALS: BP 98/74
[2023-11-20] MEDS ORDERED: Omeprazole 20 MG CapCR PO SCH (06:00)
[2023-11-20 07:22] VITALS: BP 99/76
[2023-11-20] MEDS ORDERED: Atorvastatin 10 MG Tab PO SCH (09:00)
[2023-11-20] MEDS ORDERED: Amiodarone HCl 200 MG Tab PO SCH (09:00)
[2023-11-20] MEDS ORDERED: Folic Acid 1 MG TAB PO SCH (09:00)
[2023-11-20] MEDS ORDERED: Potassium Chloride 10 Meq Tablet SA PO SCH (09:00)
[2023-11-20] MEDS ORDERED: Thiamine HCl 100 MG Tab PO SCH (09:00)
[2023-11-20] MEDS ORDERED: Furosemide 20 MG Tab PO SCH (09:00)
[2023-11-20] MEDS ORDERED: Multivitamins 1 Tab PO SCH (09:00)
[2023-11-20 12:26] VITALS: BP 95/75
[2023-11-20 15:52] VITALS: BP 106/86
--- NOTE | 2023-11-20 15:58 | NUR ---
4'oclock vitals are stable and pt waiting for dinner. has call light within reach and bed at lowest setting.
--- NOTE | 2023-11-20 17:03 | NUR ---
END OF SHIFT SUMMARY: PT IS A&OX4 AND ACTIVE IN HIS CARE. ON TELE SHOWING PACED RYTHM W/ RATE IN 60'S. DID SHOW SOME PVC'S IN THE AM @ APPROXIMATELY 0800. PACEMAKER INTERRIGATED AT BEDSIDE AND AMIODARONE ORDERED TO START TODAY PER MD ORDER. PT AWARE OF PLAN OF CARE TO STAY ANOTHER NIGHT FOR OBSERVATION AND GO HOME TOMORROW. WILL NOTIFY ONCOMING POLICE DETECTIVE NURSE.
[2023-11-20 20:46] VITALS: BP 104/78
[2023-11-21 00:55] VITALS: BP 93/78
[2023-11-21 04:50] VITALS: BP 105/78
--- NOTE | 2023-11-21 05:06 | NUR ---
SHIFT SUMMARY ALINA WAS ALERT AND FULLY ORIENTED ON ASSESSMENT. HE DENIES ANY SYMPTOMS, AND CLAIMS TO BE FEELING ABOUT AT HIS BASELINE. NO CALLS FROM TELE THIS SHIFT. NO ACUTE EVENTS, OR CHANGES TO CONDITION, PT RESTING IN BED AT A LOW POSITION WITH CALL LIGHT IN REACH PLAN IS TO DISCHARGE WHEN HE HAS GONE 48 HRS WITHOUT AN EVENT ON HIS PACER.
[2023-11-21 09:11] VITALS: BP 111/81
[2023-11-21] MEDS ORDERED: Amiodarone HCl200 MG PO (14:28)
--- NOTE | 2023-11-21 15:25 | NUR ---
DISCHARGE NOTE: A&Ox4. PLEASANT AND COOPERATIVE WITH CARE. ABLE TO ADVOCATE OWN NEEDS. NO ACUTE CONCERNS. MED REC FAXED TO [facility]. PATIENT LEFT UNIT WITH ALL BELONGINGS AND DISCHARGE PACKET FOR TRANSPORT HOME VIA PRIVATE VEHICLE; HIS BROTHER IS DRIVING HIM HOME.
[2023-11-22] MEDS ORDERED: Amiodarone HCl 200 MG Tab PO SCH (21:00)
[2023-11-26] MEDS ORDERED: Amiodarone HCl 200 MG Tab PO SCH (21:00)
== END 2023-11-21 14:56 | disposition home or self-care (01) | DRG 309 ==
LOC: ER 14:46 → PCU 14:47
PROVIDERS: Nurse Practitioner Acute Care; Student in an Organized Health Care Education/Training Program; ADMIT Internal Medicine
DX: I47.20 Ventricular tachycardia, unspecified (principal); E87.1 Hypo-osmolality and hyponatremia; R55 Syncope and collapse; I48.92 Unspecified atrial flutter; I25.10 Atherosclerotic heart disease of native coronary artery without angina pectoris; I48.91 Unspecified atrial fibrillation; I10 Essential (primary) hypertension; G89.29 Other chronic pain; E78.5 Hyperlipidemia, unspecified; F10.20 Alcohol dependence, uncomplicated; E87.70 Fluid overload, unspecified; Z95.810 Presence of automatic (implantable) cardiac defibrillator; Z98.890 Other specified postprocedural states; Z79.899 Other long term (current) drug therapy; Z79.01 Long term (current) use of anticoagulants
CPT/HCPCS: 36415; 70450; 71046; 80048; 80053; 83735; 84443; 84484; 85025; 93005; 93010; 96374; 96375; 99285-25; A9270; G0378; J1940; J3475

== ENCOUNTER 2024-04-28 19:42 | Emergency (ER) | payer OTHER ==
[~2024-04-28] VITALS: Ht 180.3 cm; Wt 99.8 kg
[~2024-04-28 19:42] MED LIST changes: +ATORVASTATIN CA20 MG PO; +Amiodarone HCl200 MG PO; +FUROSEMIDE20 MG PO; +HYDROCODONE-AC1 EA19 PO; +KLOR-CON 1010 ME9 PO; +LISI5 PO; +OMEP20ER PO
[2024-04-28 20:49] LABS: BASOPHILS ABSOLUTE AUTO 0.05 K/mm3 (0.00-0.23); BASOPHILS PERCENT AUTO 1 % (0-2); EOSINOPHILS ABSOLUTE AUTO 0.04 K/mm3 (0.00-0.68); EOSINOPHILS PERCENT AUTO 1 % (0-6); Hematocrit 36.2 % (37.0-53.0); Hemoglobin 12.1 g/dL (13.5-17.5); IMMATURE GRAN ABSOLUTE AUTO 0.05 K/mm3 (0.00-0.10); IMMATURE GRAN PERCENT AUTO 1 % (0-1); LYMPHOCYTES ABSOLUTE AUTO 0.98 K/mm3 (0.84-5.20); LYMPHOCYTES PERCENT AUTO 14 % (21-46); MONOCYTES ABSOLUTE AUTO 0.69 K/mm3 (0.16-1.47); MONOCYTES PERCENT AUTO 10 % (4-13); Mean Corpuscular HGB 31.9 pg (26.0-34.0); Mean Corpuscular HGB Conc 33.4 g/dL (31.5-36.5); Mean Corpuscular Volume 96 fL (80-100); Mean Platelet Volume 8.5 fL (9.1-12.4); NEUTROPHILS ABSOLUTE AUTO 5.26 K/mm3 (1.96-9.15); NEUTROPHILS PERCENT AUTO 74 % (41-73); Platelet Count 223 K/mm3 (150-400); RDW Coefficient Variation 15.6 % (11.7-14.2); RDW Standard Deviation 55.1 fL (35.1-46.3); Red Blood Cell Count 3.79 M/mm3 (4.30-5.90); White Blood Cell Count 7.07 K/mm3 (4.00-11.30)
[2024-04-28 21:08] LABS: Albumin, Blood 3.3 g/dL (3.4-5.0); Albumin/Globulin Ratio 0.8 (0.8-1.8); Bilirubin, Total 1.1 mg/dL (0.1-1.0); Bun/Creatinine Ratio 22.5 (12.0-20.0); Calcium, Blood 8.5 mg/dL (8.5-10.1); Creatinine, Blood 0.93 mg/dL (0.60-1.20); Globulin, Blood 4.1 g/dL (2.2-4.0); Potassium, Blood 3.9 mmol/L (3.5-5.5); Total Protein, Blood 7.4 g/dL (6.4-8.2)
[2024-04-28 23:30] VITALS: BP 113/76
== END 2024-04-28 23:57 | disposition home or self-care (01) ==
LOC: ER 19:42
PROVIDERS: Student in an Organized Health Care Education/Training Program
DX: I11.0 Hypertensive heart disease with heart failure (principal); I50.9 Heart failure, unspecified; F10.90 Alcohol use, unspecified, uncomplicated; R74.01 Elevation of levels of liver transaminase levels; Z79.01 Long term (current) use of anticoagulants; Z79.899 Other long term (current) drug therapy
CPT/HCPCS: 71046; 80053; 83690; 83880; 84484; 85025; 93005; 93010; 99285-25

== ENCOUNTER 2024-09-09 09:17 | Day surgery (SDC) | payer OTHER ==
[~2024-09-09] VITALS: Ht 180.3 cm; Wt 85.6 kg
[~2024-09-09 09:17] MED LIST changes: +Lactated Ringer's 1,000 ML IV ONE
[2024-09-09] MEDS ORDERED: METO25ER (09:30)
[2024-09-09] MEDS ORDERED: SPIR50 (09:31)
[2024-09-09] MEDS ORDERED: Lactated Ringer's 1,000 ML IV ONE (10:14)
[2024-09-09] MEDS ORDERED: propofoL 50 ML IV ONE (10:21)
[2024-09-09] MEDS ORDERED: Lidocaine HCl 4% 5 ML SDA ONE (10:21)
--- NOTE | 2024-09-09 10:46 | NUR ---
09/09/24 1046 Dione Sharma DURING CASE, JEREMIE OLIVO TOOK OVER ANESTHESIA CARE TO GIVE DR. MANRIQUE A BREAK.
[2024-09-09 11:31] VITALS: BP 105/83
== END 2024-09-09 11:20 | disposition home or self-care (01) ==
LOC: ORSCSDS 09:17
PROVIDERS: Internal Medicine Gastroenterology
PROC: 0DJ08ZZ Inspection of Upper Intestinal Tract, Via Natural or Artificial Opening Endoscopic (ICD-10-PCS; principal; 2024-09-09 11:00)
DX: K74.60 Unspecified cirrhosis of liver (principal); I48.0 Paroxysmal atrial fibrillation; I10 Essential (primary) hypertension; E78.5 Hyperlipidemia, unspecified; I25.10 Atherosclerotic heart disease of native coronary artery without angina pectoris; Z95.0 Presence of cardiac pacemaker; Z87.891 Personal history of nicotine dependence; Z79.899 Other long term (current) drug therapy; Z79.01 Long term (current) use of anticoagulants
CPT/HCPCS: J2003; J2704; J7120

== ENCOUNTER 2025-01-12 16:27 | Emergency (ER) | payer OTHER ==
[~2025-01-12] VITALS: Ht 180.3 cm; Wt 97.5 kg
[~2025-01-12 16:27] MED LIST changes: -Lactated Ringer's 1,000 ML IV ONE; +METO25ER; +SPIR50
[2025-01-12 16:57] LABS: BASOPHILS ABSOLUTE AUTO 0.07 K/mm3 (0.00-0.23); BASOPHILS PERCENT AUTO 1 % (0-2); EOSINOPHILS ABSOLUTE AUTO 0.04 K/mm3 (0.00-0.68); EOSINOPHILS PERCENT AUTO 0 % (0-6); Hematocrit 31.6 % (37.0-53.0); Hemoglobin 10.1 g/dL (13.5-17.5); IMMATURE GRAN ABSOLUTE AUTO 0.15 K/mm3 (0.00-0.10); IMMATURE GRAN PERCENT AUTO 1 % (0-1); LYMPHOCYTES ABSOLUTE AUTO 1.07 K/mm3 (0.84-5.20); LYMPHOCYTES PERCENT AUTO 7 % (21-46); MONOCYTES ABSOLUTE AUTO 1.42 K/mm3 (0.16-1.47); MONOCYTES PERCENT AUTO 10 % (4-13); Mean Corpuscular Volume 103 fL (80-100); Mean Platelet Volume 8.8 fL (9.1-12.4); NEUTROPHILS ABSOLUTE AUTO 11.91 K/mm3 (1.96-9.15); NEUTROPHILS PERCENT AUTO 81 % (41-73); Platelet Count 300 K/mm3 (150-400); RDW Coefficient Variation 18.3 % (11.7-14.2); RDW Standard Deviation 68.8 fL (35.1-46.3); Red Blood Cell Count 3.06 M/mm3 (4.30-5.90); White Blood Cell Count 14.66 K/mm3 (4.00-11.30)
[2025-01-12 17:14] LABS: International Normalized Ratio 1.28; Prothrombin Time Results 13.8 Sec (9.7-11.5)
[2025-01-12 17:24] LABS: Albumin, Blood 2.5 g/dL (3.4-5.0); Albumin/Globulin Ratio 0.5 (0.8-1.8); Bilirubin, Total 1.2 mg/dL (0.1-1.0); Bun/Creatinine Ratio 26.4 (12.0-20.0); Calcium, Blood 8.6 mg/dL (8.5-10.1); Creatinine, Blood 1.4 mg/dL (0.60-1.20); Globulin, Blood 4.9 g/dL (2.2-4.0); Potassium, Blood 4.6 mmol/L (3.5-5.5); Total Protein, Blood 7.4 g/dL (6.4-8.2)
[2025-01-12 22:00] VITALS: BP 107/80
== END 2025-01-13 01:21 | disposition home or self-care (01) ==
LOC: ER 16:27
PROVIDERS: Physician Assistant
DX: I35.0 Nonrheumatic aortic (valve) stenosis (principal); R18.8 Other ascites; K21.9 Gastro-esophageal reflux disease without esophagitis; E78.5 Hyperlipidemia, unspecified; I11.0 Hypertensive heart disease with heart failure; I50.9 Heart failure, unspecified; Z87.891 Personal history of nicotine dependence; Z79.899 Other long term (current) drug therapy
CPT/HCPCS: 71046; 71260; 80053; 85025; 85610; 85730; 93005; 93010; 99285-25; Q9967

== ENCOUNTER 2025-02-21 15:51 | Emergency (ER) | payer OTHER ==
[~2025-02-21] VITALS: Ht 180.3 cm; Wt 93.4 kg
[2025-02-21 15:55] VITALS: BP 105/70
== END 2025-02-21 16:10 | disposition home or self-care (01) ==
LOC: ER 15:51
DX: T81.89XA Other complications of procedures, not elsewhere classified, initial encounter (principal); M89.8X5 Other specified disorders of bone, thigh; M40.56 Lordosis, unspecified, lumbar region; M51.369 Other intervertebral disc degeneration, lumbar region without mention of lumbar back pain or lower extremity pain; M47.816 Spondylosis without myelopathy or radiculopathy, lumbar region; K70.31 Alcoholic cirrhosis of liver with ascites; K73.0 Chronic persistent hepatitis, not elsewhere classified; D50.0 Iron deficiency anemia secondary to blood loss (chronic); R74.8 Abnormal levels of other serum enzymes; R53.83 Other fatigue; Z48.02 Encounter for removal of sutures; Z79.01 Long term (current) use of anticoagulants; Z79.899 Other long term (current) drug therapy
CPT/HCPCS: 72100; 73522; 80053; 82306; 82728; 82784; 82977; 83521; 83540; 83550; 83970; 84155; 84165; 85025; 85027; 85610; 85651; 86140; 86334; 86850; 86900; 86901; 99282